=== PATIENT | female | born 1960 | race Caucasian/White ===

== ENCOUNTER → 2021-01-03 11:04 | Outpatient (CLI) | payer OTHER, SELFPAY ==
--- NOTE | 2021-01-03 | DI.CT.S_ITS ---
PROCEDURE: CT SINUS SCREEN WO CON INDICATIONS: Chronic pansinusitis TECHNIQUE: Noncontrast 3.0 mm axial images acquired from the frontal sinuses to the mid-sella, with coronal and sagittal reformats. For radiation dose reduction, the following was used: automated exposure control, adjustment of mA and/or kV according to patient size. COMPARISON: None. FINDINGS: Image quality: Excellent. Maxillary Sinuses: No bony remodeling or destruction. There is mild mucosal thickening seen involving the inferior right maxillary sinus. Ethmoid Air Cells: No bony remodeling or destruction. Sinuses are clear. Sphenoid Sinuses: No bony remodeling or destruction. Sinuses are clear. Frontal Sinuses: No bony remodeling or destruction. There is mild mucosal thickening seen involving the inferomedial left frontal sinus. Ostiomeatal Complexes: Ostiomeatal complexes are patent, yet there constitutionally narrowed, with right-sided Laith cells. Miscellaneous: Visualized intra-orbital contents are normal. No pee bullosa or paradoxical turbinate curvature. There is mild leftward nasal septal deviation. IMPRESSION: Mild scattered foci of paranasal sinus disease can be seen. Narrowed ostiomeatal complexes. Mild leftward nasal septal deviation. Dictated by: Sylvester Ontiveros M.D. on 01/03/2021 at 10:57 Approved by: Sylvester Ontiveros M.D. on 01/03/2021 at 10:59
== END ==
PROVIDERS: Family Provider Registered Nurse Women's Health Care, Ambulatory; PCP Naturopath; Referring Provider Otolaryngology; Visit Provider Otolaryngology
DX: J32.4 Chronic pansinusitis (principal); J34.2 Deviated nasal septum
CPT/HCPCS: 70486

== ENCOUNTER → 2021-04-28 08:30 | Outpatient (CLI) | payer OTHER, SELFPAY ==
--- NOTE | 2021-04-28 | DI.CT.S_ITS ---
PROCEDURE: CT LUMBAR SPINE WO CON INDICATIONS: Spinal stenosis, lumbar region with neurogenic claudication TECHNIQUE: Noncontrast 3 mm thick sections acquired from the T12 level to the sacrum. 0.8 mm axial images are reformatted. Sagittal and coronal reformats were constructed. For radiation dose reduction, the following was used: automated exposure control. COMPARISON: [facility] MR, MR LUMBAR SPINE WITHOUT CONTRAST, 03/25/2021, 14:48. [facility], [facility] WITHOUT CONTRAST, 11/19/2017, 15:36. FINDINGS: Image quality: Excellent. Bones: No acute vertebral body compression fractures. No suspicious lytic or blastic bony lesions. No pars defects. [id number] levoconvex lumbar scoliotic curvature is seen. There is minimal retrolisthesis at L1-L2. Mild retrolisthesis is seen at L2-L3. There is minimal retrolisthesis seen at the L5-S1 level. T12-L1: No significant abnormality is seen. L1-L2: At least moderate loss of disc height is seen. Vacuum disc phenomenon is seen at this level. Endplate irregularity and sclerosis can be seen. Posteriorly projected endplate osteophytes are seen. Moderate generalized disc bulge is seen. No significant neural foraminal narrowing is seen. Mild central canal narrowing is seen. L2-L3: At least moderate loss of disc height can be seen. Vacuum disc phenomenon is seen at this level. Endplate irregularity and sclerosis can be seen. Moderate generalized disc bulge is seen. There is at least moderate bilateral neural foraminal narrowing seen, right worse than left. Mild to moderate central canal narrowing is seen. L3-L4: The disc height is well preserved. Moderate generalized disc bulge is seen. There is a superimposed central disc protrusion. Mild facet joint hypertrophy is seen. There is mild right-sided and no left-sided neural foraminal narrowing seen. Moderate central canal narrowing is seen. L4-L5: At least moderate loss of height is seen. Endplate irregularity and sclerosis can be seen. Vacuum disc phenomenon is seen at this level. Moderate disc bulge is seen, which is eccentric to the right. Moderate facet joint hypertrophy is seen. There is moderate to severe right-sided neural foraminal narrowing seen, with associated compression upon the exiting right L4 nerve root. Mild to moderate left-sided neural foraminal narrowing is seen. At least moderate central canal narrowing can be seen. L5-S1: There is at least moderate loss of disc height seen. Vacuum disc phenomenon is seen at this level. Posteriorly projected endplate osteophytes are seen. Moderate facet joint hypertrophy is seen. There is moderate to severe left-sided neural foraminal narrowing seen, with associated compression upon the exiting left L4 nerve root. No significant right-sided neural foraminal narrowing is seen. Moderate central canal narrowing is seen. Soft tissues: No retroperitoneal masses or hematomas. Visualized aorta is normal in caliber. A normal appendix is incidentally noted. IMPRESSION: Multiple levels of lumbar spine degenerative change are seen, which are worst inferiorly. There is moderate to severe right-sided neural foraminal narrowing at L4-L5 and moderate to severe left-sided neural foraminal at L5-S1. Associated exiting nerve root compression can be seen. The degenerative changes are better seen on the recent prior MRI examination. [id number] levoconvex lumbar scoliosis is seen. Dictated by: Sylvester Ontiveros M.D. on 04/28/2021 at 11:05 Approved by: Sylvester Ontiveros M.D. on 04/28/2021 at 11:11
== END ==
PROVIDERS: Family Provider Registered Nurse Women's Health Care, Ambulatory; PCP Naturopath; Referring Provider Physical Medicine & Rehabilitation; Visit Provider Orthopaedic Surgery Orthopaedic Surgery of the Spine
DX: Z01.818 Encounter for other preprocedural examination (principal); M48.062 Spinal stenosis, lumbar region with neurogenic claudication; M48.07 Spinal stenosis, lumbosacral region; M41.86 Other forms of scoliosis, lumbar region; M47.816 Spondylosis without myelopathy or radiculopathy, lumbar region; M47.817 Spondylosis without myelopathy or radiculopathy, lumbosacral region
CPT/HCPCS: 72131; 93005; 93010

== ENCOUNTER → 2021-07-10 12:09 | Outpatient (CLI) | payer OTHER, SELFPAY ==
--- NOTE | 2021-07-10 | DI.RAD.S_ITS ---
PROCEDURE: XR CHEST 2V INDICATIONS: COUGH TECHNIQUE: 2 views of the chest were acquired. COMPARISON: None. FINDINGS: Surgical changes and devices: None. Lungs and pleura: Lungs are clear. No pleural effusions or pneumothorax. Mediastinum: Mediastinal contours are normal. Heart size is normal. Bones and chest wall: No suspicious bony abnormalities. Soft tissues appear unremarkable. IMPRESSION: No acute cardiopulmonary disease. Dictated by: Letitia Rodriguez M.D. on 07/10/2021 at 17:06 Approved by: Letitia Rodriguez M.D. on 07/10/2021 at 17:06
[2021-07-10 14:31] LABS: Add Manual Diff / Slide Review NO; Basophils Absolute Auto 0 /uL (0-100); Basophils Percent Auto 0.7 % (0-2); Eosinophils Absolute Auto 100 /uL (0-450); Eosinophils Percent Auto 2.3 % (2-4); Hematocrit 36.8 % (36-46); Hemoglobin 12.6 g/dL (12.0-16.0); Lymphocytes Absolute Auto 1900 /uL (1100-4500); Lymphocytes Percent Auto 32.8 % (25-40); Mean Corpuscular HGB Conc 34.3 % (30-36); Mean Corpuscular Hemoglobin 32.4 PG (26-34); Mean Corpuscular Volume 94.3 fL (80-100); Monocytes Absolute Auto 500 /uL (0-900); Monocytes Percent Auto 8.4 % (3-14); Neutrophils Absolute Auto 3200 /uL (1500-7000); Neutrophils Percent Auto 55.8 % (50-75); Platelet Count 205 X10^3/uL (150-400); Red Blood Cell Count 3.91 X10^6/uL (4.0-5.2); Red Cell Distribution Width 12.9 % (11.6-14.8); White Blood Cell Count 5.6 X10^3/uL (4.5-11.0)
[2021-07-10 14:46] LABS: Hemoglobin A1C% w Est Avg Glu 5.1 % (4.0-6.0)
[2021-07-10 15:05] LABS: BUN Creatinine Ratio 15.2 (6-22); Blood Urea Nitrogen 10 mg/dL (7-17); Calcium 9.4 mg/dL (8.4-10.2); Carbon Dioxide 27 mmol/L (22-32); Chloride 106 mmol/L (98-107); Estimated Glomerular Filt Rate > 60.0 mL/min (>60); Glucose 94 mg/dL (80-110); HEMOLYSIS < 15 (0-50); Potassium 4.2 mmol/L (3.4-5.1); Sodium 140 mmol/L (137-145)
[2021-07-10 15:10] LABS: Free T3, Triiodothyronine Free 2.47 pg/mL (2.77-5.27)
[2021-07-10 15:24] LABS: Thyroid Stimulating Hormone 0.992 uIU/mL (0.47-4.68)
[2021-07-11 10:17] LABS: Ferritin 100 ng/mL (11-264)
== END ==
PROVIDERS: Family Provider Registered Nurse Women's Health Care, Ambulatory; PCP Naturopath; Referring Provider Orthopaedic Surgery Orthopaedic Surgery of the Spine; Visit Provider Orthopaedic Surgery Orthopaedic Surgery of the Spine
DX: E03.9 Hypothyroidism, unspecified (principal); R04.2 Hemoptysis; R05.9 Cough, unspecified; Z01.812 Encounter for preprocedural laboratory examination; R73.9 Hyperglycemia, unspecified
CPT/HCPCS: 36415; 71046; 80048; 82728; 83036; 84443; 84481; 85025

== ENCOUNTER → 2021-08-18 09:34 | Outpatient (CLI) | payer OTHER, SELFPAY ==
[2021-08-18 11:37] LABS: COVID19 -Nasal RAPID Negative (Negative)
== END ==
PROVIDERS: Family Provider Registered Nurse Women's Health Care, Ambulatory; PCP Naturopath; Visit Provider Family Medicine Sleep Medicine
DX: Z20.822 Contact with and (suspected) exposure to COVID-19 (principal)
CPT/HCPCS: 87635; C9803

== ENCOUNTER 2021-08-20 13:55 | Observation (INO) | payer OTHER, SELFPAY ==
[2021-08-18 12:50] VITALS: BMI 25.7
[2021-08-20] VITALS (15 sets, daily range): BP systolic 97–125; BP diastolic 46–71; PULSE 71–89; RESP 9–18; TEMP 35.9–36.7; O2SAT 92–100; BMI 25.7
--- NOTE | 2021-08-20 | DI.RAD.S_ITS ---
PROCEDURE: XR LUMBAR SPINE 2-3V INDICATIONS: L4-5 L5-S1 TLIF TECHNIQUE: 2 views of the lumbar spine were acquired. COMPARISON: Merged With [facility], CT, CT LUMBAR SPINE WO CON, 04/28/2021, 8:41. FINDINGS: 2 intraoperative fluoroscopy images demonstrate discectomy, laminectomy and posterior fusion at L4-L5 and L5-S1. Surgical hardware appear in expected position. Multiple artifacts are seen on images. IMPRESSION: Expected postsurgical change. Dictated by: Royal Davalos M.D. on 08/20/2021 at 15:41 Approved by: Royal Davalos M.D. on 08/20/2021 at 15:45
[2021-08-20] MEDS: LACTATED RINGERS 1,000 ML 42 ML IV ×2 (07:35→09:00)
--- NOTE | 2021-08-20 07:48 | PM.PREOP ---
Pre-operative Note COVID-19 COVID-19 status: Negative Result date/Date tested (Pos, Neg/Pending): 08/19/21 Criteria for continued procedure: Expected advancement of disease process, Possibility delay results in more complex future surgery or treatment, Increased loss of function, Continuing or worsening of significant or severe pain, Deterioration of the patient's condition or overall health and Delay expected to result in less-positive ultimate med/surg outcome Interval Note History & Physical reviewed/Exam performed by Physician: Yes Changes to H&P: No
[2021-08-20] MEDS: CEFAZOLIN 2 GM/20 ML SYRINGE IV ×2 (08:22→16:17)
--- NOTE | 2021-08-20 08:51 | SUR.OPER ---
Prone on spine table, head in foam head support, padded chest and pelvic supports, gel pad at knees, lower legs supported by pillows; nipples, genitalia and toes free of pressure, arms secured on foam padded arm boards at <90 degrees abduction. Tape over blanket at thigh secured to table.
[2021-08-20] MEDS: BUPIVACAINE 0.25% (PF) 60 ML, EPINEPHrine 0.3 MG INJ (08:56)
[2021-08-20] MEDS: BUPIVACAINE LIPOSOME 266 MG/20 ML VIAL INJ (08:58)
--- NOTE | 2021-08-20 12:03 | PM.OP.1 ---
Operative Date/Time/Diagnoses Date of procedure: 08/20/21 Time of procedure: 07:45 Pre-op diagnosis: 1. L4-5, L5-S1 spinal stenosis with radiculopathy 2. Lumbar scoliosis Post-op diagnosis: same Procedure & Clinicians Procedure: 1. L4-5, L5-S1 Postero-lateral and posterior interbody fusion 2. L4-5, L5-S1 interbody cage placement. 3. L4-5, L5-S1 decompressive laminectomy with bilateral facetecomies 4. L4-5, L5-S1 Posterior segmental instrumentation 5. [place] of bone marrow from iliac crest 6. Utilization of microsurgical technique and operating microscope 7. Utilization of robotic assisted surgery Same procedure as scheduled: Yes Indications: Patient has been having chronic back pain and worsening lumbar radiculopathy. Patient failed multiple conservative management with worsening pain weakness and numbness in her lower extremity. Patient has been having difficulty performing activity of daily living. After discussing risks benefits of treatment options, patient elected proceed with surgery. Surgeon: Prem Hernandez Package Crimper: Idalia Lomas Click Yes if Unassisted: No Anesthesia Type: General Operative Notes Closure Type: primary Specimen(s): none sent Prosthetic devices, grafts, tissues, transplants, or devices: Globus CREO MIS screws, Rise cages Applied: catheter Estimated Blood Loss (mL): 100 Blood products transfused: none Procedure in detail: Patient was seen in the preoperative area. Risks and benefits of the surgery was discussed with the patient. Informed consent was obtained from the patient and placed in the chart. Surgical site was marked. Patient was taken to the operative room. General anesthesia was administered. Prophylactic antibiotic was given to the patient less than 30 min before the incision was made. Patient was placed into a prone position on the Dar table. Patient's back was then prepped and draped in the sterile fashion. Time-out was performed at this time. After patient was prepped and draped, patient's PSIS was palpated and marked bilaterally. Small 1 cm incision was made over the PSIS for placement of the reference probes. Two trocar was placed into the PSIS 1 on each side. The reference probe was attached to the trocar of the reference apparatus. At this time the C-arm imaging was used to confirm AP and lateral of L4-L5, L5-S1 vertebrae and merged the C-arm imaging using the Triplify robotic navigation system with the CT of the lumbar spine. After successful merging was completed and confirmed, skin marker was used to gal out the skin incision using the Triplify robotic arm. Bilateral incision was made at this time. Pre templated trajectory was used and guided using the Triplify robotic navigation system for bilateral L4, L5, S1 pedicle screw placement. This was done by using the robotic arm to guide the high-speed bur to make a cortical entry point. Next a drill was placed also using the robotic arm and guided using the navigation system drilling partially through bilateral L4, L5 and S1 pedicles. Next L4, L5, S1 pedicle screws it was pre templated and measured was placed onto the power spotter driver and inserted into the pedicles bilaterally. After all 6 screws were placed C-arm imaging was taken of both AP and lateral to confirm the placement. Excellent placement of the screws were confirmed and a matched precisely with the pre planned screw placement using the navigation system. MARs retractor was inserted using [employer] Smart[employer]Buildingivation guidence. Globus MARS retractors was placed inside the incision and docked onto the L4 and L5 lamina. Using microsurgical technique and operating microscope, a L4, L5 laminectomy and L4-5, L5-S1 facetectomy was performed using a Kerrison rongeur. Patient was found have severe lateral recess and neural foramen stenosis which was fully decompressed after the laminectomy facetectomy. More than 75% of the facets were removed during the process of decompression rendering L4-5, L5-S1 level grossly unstable and required a fusion procedure at the same time. The disc space at L4-5, L5-S1 was identified, and a total diskectomy was performed at L4-5, L5-S1 level. The endplates were decorticated using a rasp and shaver. The total diskectomy and decortication was performed at L4-5, L5-S1 level in order to to accomplish a L4-5, L5-S1 fusion. The local bone from the laminectomy and facetectomy was saved for local bone grafting. After the total diskectomy and decortication was completed, Trifecta bone graft material was combined with local bone that was harvested earlier. At this time, a separate skin is incision was made over the iliac crest. A Jamshidi needle was inserted into the iliac crest through a separate skin incision. 5 cc of bone marrow aspiration was obtained through the separate skin incision using a Jamshidi needle from the iliac crest. The bone marrow aspiration was combined with local bone and the Trifecta bone grafting material. The bone grafting material was placed into the L4-5, L5-S1 interbody space along with a expandable cage. The cage was expanded to its maximum height using the torque limiting screwdriver. The disc preparation as well as the cage insertion were also performed under navigation guidance. After the cage was placed, AP and lateral C-arm imaging was taken to confirm placement of the cage and excellent position was confirmed. Globus MARS retractor was inserted and docked onto the L4-5, L5-S1 posterolateral gutter on the right side. Using the power drill, posterior-lateral decortication was performed at L4-5, L5-S1 level until bleeding cortical bone was identified. The remaining bone grafting material was placed into the L4-5, L5-S1 posterior lateral gutter he order to accomplish posterolateral fusion at the L4-5, L5-S1 level. At this time the tulips were attached to the L4, L5, S1 pedicle screw shanks. After measuring the length of the rods, they were inserted into the tulips of the pedicle screws and locked in place using locking caps and torque limiting screwdriver bilaterally. Total 6 caps and 2 titanium rods was used in order to complete the posterior instrumentation construct. After all the hardware was placed, and confirmed with AP and lateral C-arm imaging, the wound was then irrigated with sterile normal saline and packed with Ray-Miya gauze for 3 min to accomplish hemostasis. After the gauze was removed the deep fascia was closed with #1 Vicryl suture. The subcutaneous layer was closed with 2-0 Vicryl. The skin was closed with skin johnny. Patient tolerated the procedure well. There were no complications. Neuro monitoring system was used to monitor patient's neurologic status throughout entire procedure. There was no disturbance of the neural monitoring signals throughout the case. Complications: none Post-operative Condition: stable Disposition: PACU Plan for aftercare: Admit to inpatient hospital
[2021-08-20] MEDS: HYDROMORPHONE 2 MG INJ IV ×4 (12:23→13:13)
[2021-08-20] MEDS: LORazepam 2 MG/ML INJ 0.5 MG IV (12:43)
[2021-08-20] MEDS: OXYCODONE/ACETAMINOPHEN 5/325 TABLET 1 TAB PO ×2 (12:56→13:27)
--- NOTE | 2021-08-20 13:10 | SUR.PHASEI ---
Report to Eddie
--- NOTE | 2021-08-20 14:10 | CM.DANOTE ---
DCP: Case received, EMR reviewed and met with patient. Son, Jl, was at bedside. Introduced self and role. Was able to obtain information regarding patient's baseline activity status prior to hospitalization. DCP assessment completed with information currently available. Patient is a 61 year old female who admitted early this morning to the care of the orthopedic team. PCP: Dr. London. Payer: confirmed: [facility]. Patient came to the hospital via private vehicle for a surgical procedure. Patient had L4-5, L5-S1 postero-lateral and posterior interbody fusion. Patient has history of chronic back pain, and spinal stenosis. Met with patient in her room. She was sleepy, she had surgery this morning. Her son, Jl, was at her bedside. Patient does live alone in [place], but son plans to assist patient when she goes home. Patient is independent at her baseline, and she does have a FWW for home use. P: DCP to continue to follow for any needs. She will be working with P.T. when she is medically stable. Maty Camarillo RN/Checker Product Design Discharge Planning/Care Management CM Discharge Assessment Start: 08/20/21 14:09 Freq: Status: Active Protocol: Document 08/20/21 14:09 (Rec: 08/20/21 14:10 [id number]) Discharge Planning Assessment Assigned Rn Social Work Maty Camarillo RN/Checker Product Design Advance Directives? No History Provided By Patient,Medical Record Prior Living Arrangements House Household Members none Type of transporation used prior to Drives own vehicle admit Independent with ADL's Yes Is patient alert and oriented? Yes DME Already Rented / Owned FWW / Walker Barriers to Discharge No Discharge Plan Home Transportation Arrangement Son Whiteboard Updated in Patient Room with Yes name and ext. # of Rn Social Work Review Status In Process Next Review Type Continued Stay Review Pre-Anesthesia Assessment Start: 08/18/21 12:50 Freq: Status: Complete Protocol: Document 08/18/21 12:50 CAB (Rec: 08/18/21 13:41 CAB [id number]) Pre-Anesthesia Assessment Patient Information Reviewed Via Phone Assessment Assessment Completed With Patient H&P Completed Within 30 Days Yes Diagnostic Results BMP/CMP,CBC Comment Labs @ [facility] 07/10, COVID screen @ [facility] 08/18/21 Negative Primary Care Provider Mini London Seen Specialist in Last 12 Months Yes Specialist Seen ENT,Orthopedist,Cold Type Artist, Other Comment Neuro r/t migraines. Primary Language Arabic Senior Policy Advisor Required No Height 5 ft 3 in Weight 145 lb Body Mass Index (BMI) 25.7 Hearing Ability Normal Visual Assist Glasses Dentition Type Teeth, Natural Present Barriers to Learning None Hx Anesthesia Reactions Yes: Occasional PONV Hx Family Anesthesia Reaction No Hx Malignant Hyperthermia No Hx Blood Transfusions No Anesthesia Review Requested No alcohol intake former Smoking Status Former smoker how long ago did patient quit smoking Quit 1985 Substance Use Type does not use Pain Present Pain Reported Musculoskeletal Symptoms Abnormal Gait,Back Pain, Difficulty Walking,Radiating Pain into Limb History of Falling (Recent or History of No ) Patient is completely paralyzed or No completely immobile Mental Status Oriented to own ability Comment Pt reports she is very active Is patient on oxygen? No Does patient have NEVAREZ/SOB Yes: r/t Asthma, pt states controlled Hx Sleep Apnea No Currently Taking a Beta Naty No Can You Climb a Flight of Stairs Without Yes SOB Hx Chest Pain No Hx SOB Yes: r/t Asthma, pt states controlled Hx Syncope or Dizziness No Anti-Coagulant Therapy No Has a Filler Room Attendant No Cardiac Testing No Hx Pacemaker/ICD No Pacemaker Rep Required? No Cardiac Clearance Received Not Applicable Diet Type At Home Gluten Free dysphagia No: No fish, pork, shellfish Gastrointestinal Symptoms Constipation Urinary Catheter Present No Hx Urinary Self Catheterization No Diabetes No Patient No Lactating No Hx Drug Resistant Organism No Presence of External or Internal Medical Yes: Bilat toe pins Devices Have you had any close contact with No someone diagnosed with COVID-19? Received a COVID vaccine? Yes Received all doses? Yes Marital Status in April 2021 Lives With none Prior Living Arrangements House Number of Floors (Floors) One Floor Support System Child/Children Does the Patient Have Assistance After Yes: Daughter will stay w/pt Surgery to assist with care in the home Patient Discharge Plan Description Return Home Comment Pt advised 1-2 night length of stay per surgeon Feels Safe in Current Environment Yes Been Physically Hurt or Threatened By a No Person in Current Environment Do you have thoughts of harming yourself None or others? Are you currently considering suicide? No Do you have a plan to hurt yourself or No Plan others? Do You Have Any Spiritual Beliefs That No May Affect Your HC Choices? Do You Have Any Cultural Practices That No May Affect Your HC Choices? Comment Gnosticist Who Can We Speak to About Patient's Care Family, friends Identifying Code for Release of Patient Declines to issue Information Health Care Proxy/Next of Kin Jana (daughter) Health Care Proxy Emergency Contact Name Jl (son) Emergency Contact Advance Directives? No Power of Signal Intelligence/Electronic Warfare No PAC Instructions Durable medical equipment, Medications to take/avoid, Nasal antibiotic,No ETOH/ petroleum product on skin DOS, NPO,Post-op transportation, Sensory aids,Sturdy shoes/ comfortable clothes,Do not bring valuables and remove jewelry
[2021-08-20] MEDS: SODIUM CHLORIDE 0.9% 1,000 ML 100 ML IV (16:16)
[2021-08-20] MEDS: GABAPENTIN 300 MG CAPSULE PO ×2 (16:17→21:58)
--- NOTE | 2021-08-20 18:57 | PC.NURSE ---
Assess- Patient is alert and oriented x3, she is groggy but awakens easily. Her dressing to lower back is cdi without mir drainage noted. Patient is not nausea at this time. She was given gabapentin by evy Rn and this has made her groggy. She denies any numbness or tingling in her lower extremities. CMS wnl and ppx2. She is on NS at 100cc/hr and tolerating well. Patients son is in room.
[2021-08-20] MEDS: ACETAMINOPHEN 325 MG TABLET 650 MG PO (19:58)
[2021-08-20] MEDS: OXYCODONE IR 5 MG TABLET 10 MG PO (20:01)
[2021-08-20] MEDS: DOCUSATE 100 MG CAPSULE PO (21:58)
[2021-08-20] MEDS: SENNOSIDES 8.6 MG TABLET 17.2 MG PO (22:01)
[2021-08-21] VITALS: BP 101/49; PULSE 74; RESP 16; TEMP 36.7; O2SAT 98
[2021-08-21] MEDS: CEFAZOLIN 2 GM/20 ML SYRINGE IV (00:05)
[2021-08-21] MEDS: ACETAMINOPHEN 325 MG TABLET 650 MG PO (01:55)
[2021-08-21] MEDS: SODIUM CHLORIDE 0.9% 1,000 ML 100 ML IV (01:58)
[2021-08-21] MEDS: LEVOTHYROXINE 75 MCG TABLET PO (05:37)
[2021-08-21] MEDS: OXYCODONE IR 5 MG TABLET 10 MG PO (05:41)
[2021-08-21 05:42] VITALS: BP 99/46; PULSE 79; RESP 16; TEMP 36.7; O2SAT 98
[2021-08-21 06:04] LABS: Hemoglobin 11.3 g/dL (12.0-16.0)
--- NOTE | 2021-08-21 07:30 | PM.DS.1 ---
History of Present Illness History of Present Illness Date Patient Seen: 08/21/21 Time Patient Seen: 07:30 Chief complaint: TLIF *OPB* Narrative: Patient states her pain is mild. Denies fever chills. No nausea vomiting. Otherwise without complaints. Discharge Providers Provider Date of admission: 08/20/21 13:55 Discharge Date: 08/21/21 Primary care physician: Mini London ND Consults: 08/20/21 13:55 Consult to Occupational Therapy Evaluate & Treat Comment: Physician Instructions: Evaluate and treat Consult to Physical Therapy Evaluate & Treat Comment: Physician Instructions: Evaluate and Treat Discharge provider: Gautam Glynn PA-C Summary Hospital Course Discharge Diagnosis: 1. L4-5, L5-S1 spinal stenosis with radiculopathy 2. Lumbar scoliosis Hospital Course: 1. L4-5, L5-S1 Postero-lateral and posterior interbody fusion 2. L4-5, L5-S1 interbody cage placement. 3. L4-5, L5-S1 decompressive laminectomy with bilateral facetecomies 4. L4-5, L5-S1 Posterior segmental instrumentation 5. [place] of bone marrow from iliac crest 6. Utilization of microsurgical technique and operating microscope 7. Utilization of robotic assisted surgery Same procedure as scheduled: Yes Indications: Patient has been having chronic back pain and worsening lumbar radiculopathy. Patient failed multiple conservative management with worsening pain weakness and numbness in her lower extremity.? Patient has been having difficulty performing activity of daily living.? After discussing risks benefits of treatment options, patient elected proceed with surgery. Surgeon: Prem Hernandez [employer] Manager: Idalia Lomas Click Yes if Unassisted: No Anesthesia Type: General Operative Notes Closure Type: primary Specimen(s): none sent Patient admitted to the hospital for the above-mentioned procedure. Patient consented to the same. Patient underwent lumbar fusion on August 20 1021. Patient back in her room recovering well as in stable condition. Will discharge home today after physical therapy if safe for home environment. Status at Discharge Cognitive/behavioral status at discharge: at baseline, oriented Functional status at discharge: uses cane/walker Overall status at discharge: patient is progressing back to baseline Exam Vital Signs (past 8 hours): - 08/21/21 00:00 08/21/21 05:42 Temperature 98.0 F 98.1 F Pulse Rate 74 79 Respiratory Rate 16 16 Blood Pressure 101/49 L 99/46 L Pulse Oximetry 98 98 Oxygen Delivery Method Room Air Oxygen Flow Rate 0 Narrative Exam Narrative: Pleasant 61-year-old female resting comfortably in bed in no apparent distress. Dressing Clean, dry, intact.. Motor functions intact bilateral lower extremities. Sensation grossly intact to light touch bilateral lower extremities. Objective Labs Result Diagrams: 08/21/21 04:40 Labs: Laboratory Results - last 24 hr 08/21/21 04:40 Hgb 11.3 L Hct 33.0 L PFSH Medical History Anxiety Asthma Chronic fatigue syndrome Constipation History of migraine History of pneumonia Hypothyroidism Kidney stone PTSD (post-traumatic stress disorder) (~04/2021) Sciatica Sinus drainage Surgical History History of bilateral tubal ligation History of bunionectomy of both great toes History of carpal tunnel release of both wrists History of dilatation and curettage Hx of tonsillectomy S/P epidural steroid injection Social History household members: none Smoking Status: Former smoker alcohol intake: former Discharge Assessment & Plan Assessment and Plan Assessment: Patient progressing as expected status post lumbar fusion Plan of Treatment: Multimodal pain management Mobilize with physical therapy Limit bending, twisting, lifting Discharge home today after physical therapy if safe for home environment. Discharge Plan Discharge Plan Patient Disposition: Home Discharge orders & Medications Prescriptions: New acetaminophen 325 mg Tablet 650 mg PO Q6HR PRN (Reason: Pain, Mild (1-3)) Qty: 60 0RF docusate sodium 100 mg Capsule 100 mg PO BID Qty: 20 0RF oxycodone 5 mg Tablet 10 mg PO Q3HR PRN (Reason: Pain, Severe (7-10)) Qty: 60 0RF hydroxyzine pamoate 25 mg Capsule 25 mg PO Q4HR PRN (Reason: Nausea And Vomiting) Qty: 30 0RF Continued fluticasone propion-salmeterol [Advair Diskus] 250-50 mcg/dose Blister With Device 1 inh INHALATION BID 0RF naltrexone 50 mg Tablet 4.5 mg PO BEDTIME 0RF Label Comments: Compounded by [facility] levothyroxine 75 mcg Tablet 75 mcg PO DAILY 0RF Flovent HFA 44 mcg/actuation Hfa Aerosol Inhaler 1 puff INHALATION BID PRN (Reason: Shortness Of Breath) 0RF Rx Instructions: administer with spacer gabapentin 300 mg Capsule 300 mg PO TID 0RF montelukast [Singulair] 10 mg Tablet 10 mg PO QAM 0RF albuterol sulfate 90 mcg/actuation Hfa Aerosol Inhaler 2 puff INHALATION Q4-6H PRN (Reason: Shortness Of Breath) 0RF rizatriptan 10 mg Tablet 10 mg PO DAILY PRN (Reason: Migraine Headache) 0RF Rx Instructions: take 1 tab at onset of headache; if no relief may repeat 1 tab after at least 2 hrs; max = 3 tabs/24 hr verapamil 120 mg Tablet 120 mg PO DAILY PRN (Reason: Migraines) 0RF fluticasone propionate 50 mcg/actuation [place],Suspension 1 spray INTRANASAL DAILY 0RF Rx Instructions: administer into each nostril loratadine [Claritin] 10 mg Tablet 10 mg PO DAILY 0RF magnesium 200 mg Tablet 400 mg PO DAILY 0RF turmeric 400 mg Capsule 1,000 mg PO BID 0RF Follow up/Referrals: Prem Hernandez MD [Physician] - (2 weeks ) Mini London ND [Primary Care Provider] - Diet/Activity/Treatments Diet: Diet as Tolerated Activity: Limit bending, twisting, lifting Skin/Wound/Dressing Care Report to your healthcare provider any signs of infection, such as:: chills, fever, increased pain, unusual drainage and unusual redness Dressing: Keep dressing clean and dry Visit Report/Discharge Packet Instructions: DI for Prescription Opioid Use, DI for Transforaminal Lumbar Interbody Fusion Stand Alone Forms: Surgery Discharge Discharge Data Primary Care Provider: Mini London Attending Provider: Prem Hernandez VTE Deep Vein Thrombosis/Pulmonary Embolism Present on Admission: No
[2021-08-21 07:51] VITALS: BP 106/48; PULSE 72; RESP 18; TEMP 36.3; O2SAT 98
[2021-08-21] MEDS: DOCUSATE 100 MG CAPSULE PO (08:56)
[2021-08-21] MEDS: GABAPENTIN 300 MG CAPSULE PO (08:56)
[2021-08-21] MEDS: LORATADINE 10 MG TABLET PO (08:56)
[2021-08-21] MEDS: OXYCODONE IR 5 MG TABLET PO ×2 (09:01→11:30)
[2021-08-21] MEDS: MONTELUKAST 10 MG TABLET PO (09:01)
--- NOTE | 2021-08-21 09:50 | OT.IP.EVAL ---
Current Diagnoses Other secondary scoliosis, lumbar region (08/20/21) Spinal stenosis, lumbar region without neurogenic claudication (08/20/21) Surgery Performed Operation Date: 08/20/21 07:45 Actual Procedures p L4-5, L5-S1 TLIF w. posterior inst. - Luis Carlos Hernandez MD Past Medical History (Last Reviewed 08/21/21 @ 07:32 by Gautam Glynn PA-C) Anxiety Asthma Chronic fatigue syndrome Constipation History of bilateral tubal ligation History of bunionectomy of both great toes History of carpal tunnel release of both wrists History of dilatation and curettage History of migraine History of pneumonia Hx of tonsillectomy Hypothyroidism Kidney stone PTSD (post-traumatic stress disorder) (~04/2021) S/P epidural steroid injection Sciatica Sinus drainage Surgical History (Last Reviewed 08/21/21 @ 07:32 by Gautam Glynn PA-C) History of bilateral tubal ligation History of bunionectomy of both great toes History of carpal tunnel release of both wrists History of dilatation and curettage Hx of tonsillectomy S/P epidural steroid injection Occupational Therapy Inpatient Evaluation/Re-Eval M1 PT/OT-IP Prior Functional Status Start: 08/21/21 10:17 Freq: NEEDED Status: Active Protocol: Document 08/21/21 09:00 [facility] (Rec: 08/21/21 10:30 [facility] [id number]) Medical Review Prior Functional Status Communication Independent Mobility and Gait Independent and able to walk a mile, however prior able to walk 3-5 miles daily. Pt does not use a device to walk with . Activities of Daily Living and IADL's Completely independent with all Adl and IADl needs. Pt states can only do light Yoga now and unable to do any bouncy movements due to her back pain. Social History Household Members none Living Arrangements House Number of Floors (Floors) One Floor Number of Stairs To Enter/Railing? 4 steps with narrow bilateral rails to enter. Home Environment Standard Height Toilet,Tub/ Shower Home Equipment Front Wheel Walker,Straight Cane,Hand Held Shower Additional Social History Comment Pt's daughter to stay with her until next Wednesday. Pt's son present for part of OT eval. M2 OT-IP Current Condition Start: 08/21/21 10:17 Freq: Status: Active Protocol: Document 08/21/21 09:00 [facility] (Rec: 08/21/21 10:30 [facility] [id number]) Occupational Therapy Current Condition Current Condition Evaluation Date 08/21/21 Treatment Diagnosis S/p L4-5, L5-S1 TLIF Diagnosis Onset Date 08/20/21 Post Operative Precautions Lumbar Precautions Log Roll,No Twisting,Limit Bending,Lifting Restriction of 10 lbs,Gait Belt above Incisional Area M3 OT- IP Subjective and Pain Start: 08/21/21 10:17 Freq: Status: Active Protocol: Document 08/21/21 09:00 [facility] (Rec: 08/21/21 10:30 [facility] [id number]) OT- Subjective Occupational Therapy Visit Type Type Initial Evaluation Visit Start Time 09:00 Visit Stop Time 09:50 Total Visit Minutes 50 Occupational Therapy Visit Comments Patient Comments Pt agreed to get up for OT eval. Patient/Caregiver Goals To go home. M4 OT- IP ADL's Start: 08/21/21 10:17 Freq: Status: Active Protocol: Document 08/21/21 09:00 [facility] (Rec: 08/21/21 10:30 [facility] [id number]) OT [id number] General Evaluation Self-Feeding Ability Independent OT ADL-Grooming General Evaluation Grooming Ability Standby Assistance OT ADL-Oral Care General Eval Oral Care Ability Independent Comments Oral Care Comments vc to best hinge at her hips to spit to best follow her back precautions. OT ADL-Dressing General Eval Lower Body Dressing Ability Minimal Assistance,Maximum Assistance Areas Needing Assistance Pull-Over Shirt,Underpants/ Brief,Pants/Shorts,Socks,Shoes Comments OT Dressing Comments Able to issue and practice use of dressing equipment for pt to best follow her back precautions. OT ADL-Toileting General Evaluation Toileting Ability Standby Assistance Comments OT Toileting Comments It was best for pt to stand to wipe to best follow her back precautions. OT ADL-Bathing Comments OT Bathing Comments It was recommended to get a shower chair and have her daughter assist her. Educated to cover her dressing with plastic prior to showering and have her daughter assist to wash her back. M5 OT- IP IADL's Start: 08/21/21 10:17 Freq: Status: Active Protocol: Document 08/21/21 09:00 [facility] (Rec: 08/21/21 10:30 [facility] [id number]) OT-Instrumental Activities of Daily Living Home Safety Awareness Awareness of Need for Assistance at Home Good Awareness Home Safety Comments Pt a bit groggy from pain medications and aware to be sure to have her family provide supervision and assist as needed. M6 OT- IP Functional Cognition Start: 08/21/21 10:17 Freq: Status: Active Protocol: Document 08/21/21 09:00 [facility] (Rec: 08/21/21 10:30 [facility] [id number]) Cognitive Factors Limiting Selfcare Function Cognitive Ability Level of Alertness Alert,Drowsy Patient Orientation Name,Age,Birthday,Month,Date, Year,Day of Week,Place, Situation Attention Span Ability Capable of Focused Attention, Capable of Sustained Attention Ability to Follow Commands Able to Follow One Step Commands Memory Description No Deficits Noted Safety Awareness Decreased Recall of Precautions,Decreased Ability to Apply Precautions Cognitive Comments Cognitive Assessment Comments Pt a bit groggy and needing reminders for her back precautions and to follow them for mobility and ADL needs. OT- Vision and Hearing OT- Vision Assessment Visual Acuity Glasses All The Time M7 OT- IP Mobility and Balance Start: 08/21/21 10:17 Freq: Status: Active Protocol: Document 08/21/21 09:00 [facility] (Rec: 08/21/21 10:30 [facility] [id number]) OT- Bed Mobility Assessment Rolling Type of Rolling Roll to Left Level of Assistance Standby Assistance Supine to Sit Supine to Sit Assist Standby Assistance OT-Transfer Assessment Sit to and From Stand Sit to and from Stand Contact Guard Assistance Transfers Transfer Ability Standby Assistance,Contact Guard Assistance Technique Transfer Destination Bed,Chair,Toilet Transfer Technique Stand Step Pivot Devices Transfer Assistive Devices Gait Belt,Front Wheeled Walker Comments Mobility Comments Pt initially needing cues to hinge at her hips when coming to stand and to push from surface standing from. CGA to close SBA with FWW while walking in the room. OT- Balance Assessment Sitting Balance and Reactions Static Sitting Balance Ability Good Dynamic Sitting Balance Ability Good Standing Balance and Reactions Static Standing Balance Ability Fair Dynamic Standing Balance Ability Fair M9 OT- IP Assessment and Plan Start: 08/21/21 10:17 Freq: Status: Active Protocol: Document 08/21/21 09:00 [facility] (Rec: 08/21/21 10:30 [facility] [id number]) OT Summary Assessment and Plan Potential Rehabilitation Potential Excellent Analytic Complexity at Evaluation Low Summary OT Impairments Pain,Balance,Functional Mobility,Dressing,Toileting, Bathing,Toilet Transfers, Shower Transfers Progress Towards Goals Progressing Toward Goals Assessment Summary Pt low complexity and main barriers are steps and a bit groggy from pain medications and forgetting her back precautions. Pt to her daughter stay with her for over a week to assist with her needs. Pt was issued LB dressing equipment to assist with her needs and suggested to get a shower chair. Pt to go home with supportive family . Goals Grooming Goal Independent Dressing Goal Independent Toileting Goal Independent Bathing Goal Independent Toilet Transfer Goal Independent Shower Transfer Goal Independent Patient/Caregiver Education Goal Demonstrate Post-Op Precautions Days to Meet Goals 5 Frequency of Treatment Frequency Of Treatment Once a Day Treatment Plan OT Treatment Plan ADL Training,Functional Cognition Training,Functional Mobility,Patient/Family Education,Discharge Planning Discharge Recommendations OT Discharge Recommendations Home with 14/12 Assist Available Home Equipment Needs showr chair Transportation Needs at Discharge Private Vehicle
--- NOTE | 2021-08-21 10:25 | PT.IIE ---
Current Diagnoses Other secondary scoliosis, lumbar region (08/20/21) Spinal stenosis, lumbar region without neurogenic claudication (08/20/21) Surgery Performed Operation Date: 08/20/21 07:45 Actual Procedures p L4-5, L5-S1 TLIF w. posterior inst. - Luis Carlos - Prem Hernandez MD Medical History (Last Reviewed 08/21/21 @ 07:32 by Gautam Glynn PA-C) Anxiety Asthma Chronic fatigue syndrome Constipation History of migraine History of pneumonia Hypothyroidism Kidney stone PTSD (post-traumatic stress disorder) (~04/2021) Sciatica Sinus drainage Physical Therapy Inpatient Evaluation/Re-Eval M1 PT/OT-IP Prior Functional Status Start: 08/21/21 10:17 Freq: NEEDED Status: Discharge Protocol: Document 08/21/21 09:00 [facility] (Rec: 08/21/21 10:30 [facility] [id number]) Medical Review Prior Functional Status Communication Independent Mobility and Gait Independent and able to walk a mile, however prior able to walk 3-5 miles daily. Pt does not use a device to walk with . Activities of Daily Living and IADL's Completely independent with all Adl and IADl needs. Pt states can only do light Yoga now and unable to do any bouncy movements due to her back pain. Social History Household Members none Living Arrangements House Number of Floors (Floors) One Floor Number of Stairs To Enter/Railing? 4 steps with narrow bilateral rails to enter. Home Environment Standard Height Toilet,Tub/ Shower Home Equipment Front Wheel Walker,Straight Cane,Hand Held Shower Additional Social History Comment Pt's daughter to sta with her until next Wednesday. Pt's present for part of OT eval. M1 PT/OT-IP Prior Functional Status Start: 08/21/21 13:28 Freq: NEEDED Status: Active Protocol: Document 08/21/21 10:25 [facility] (Rec: 08/21/21 13:39 [facility] [id number]) Medical Review Prior Functional Status Medical History Reviewed Yes Communication able to make needs known Mobility and Gait pt stated that she is indpeendent with all mobilities and ambualtion without AD Social History Household Members none Living Arrangements House Number of Floors (Floors) One Floor Number of Stairs To Enter/Railing? 4 steps B rails to enter Home Environment Standard Height Toilet,Tub/ Shower Home Equipment Front Wheel Walker,Hand Held Shower Additional Social History Comment pt's daughter will stay with pt to assist her for ~ 1 1/2 weeks M2 PT-IP Current Condition Start: 08/21/21 13:28 Freq: NEEDED Status: Active Protocol: Document 08/21/21 10:25 [facility] (Rec: 08/21/21 13:39 [facility] [id number]) Physical Therapy Current Condition Current Condition Evaluation Date 08/21/21 Treatment Diagnosis s/p L4-5, L5S1 TLIF; difficulty in walking Onset Date 08/20/21 M3 PT-IP Subjective Start: 08/21/21 13:28 Freq: NEEDED Status: Active Protocol: Document 08/21/21 10:25 [facility] (Rec: 08/21/21 13:39 [facility] [id number]) Subjective Physical Therapy Visit Type Type Initial Evaluation Visit Start Time 10:25 Visit Stop Time 11:00 Total Visit Minutes 35 Number of PRINCIPAL TECHNICAL ARCHITECT Visits 0 Physical Therapy Visit Comments Patient Comments agreeable to do PT Therapy Pain Assessment Pain When Pain Assessed At Rest Pain Present Pain Present Pain Reported Location Low Back Intensity 5 Scale Used Numeric (0 - 10) Pain Management Techniques Apply Cold,Distraction, Modification of Treatment,Re- positioning,Timing of Activity with Medications M4 PT-IP Mobility and Gait Start: 08/21/21 13:28 Freq: NEEDED Status: Active Protocol: Document 08/21/21 10:25 [facility] (Rec: 08/21/21 13:39 [facility] [id number]) PT-Bed Mobility Assessment Rolling Type of Rolling Log Rolling Level of Assist Standby Assistance Supine to Sit Supine to Sit Standby Assistance Sit to Supine Sit to Supine Standby Assistance Scooting Scooting to Edge of Bed Standby Assistance PT-Transfer Assessment Sit to and From Stand Sit to and from Stand Standby Assistance,1 Person Assistance,Use of Upper Extremities Equipment Transfer Assistive Device Gait Belt,Front Wheeled Walker Orthotic/Prosthetic Devices or Brace: No Transfers Transfer Destination Bed,Chair Transfer Technique ambulated Transfer Ability Level of Assist Standby Assistance,1 Person Assistance,Use of Upper Extremities Comments Mobility Comments pt sitting on chair. pt's son in room. pt able to recall her back precautions. completed sit to stand SBA and ambulated in room ~ 15 ft to the bed SBA using FWW. pt with sligh increase of R knee flexion with slight buckling and cued for quads contraction . pt able to follow. pt also tends to cross RLE over midline and cued for increasing YARI for safety. completed supine to sit SBA log roll. completed sit to stand from the EOB CGA with difficulty. pt sat back down. educated on sit<>stand techniques and pt repeated x 3 SBA with initial cues and able to complete without afterwards. pt ambulated in the hallway using FWW SBA ~ 125 ft. educated on stair climbing and completed up/down steps using B rails SBA to CGA. son present and knows how to assist pt. pt ambulated back to her room using FWW SBA. sat on chair and positioned. pt asked regarding tub transfer bench transfer and educated on how to complete. pt and son without further concerns. left pt in chair with call light next to pt. informed nurse regarding pt's mobility. Gait Assessment Gait Gait Assistance Required: Standby Assistance Distance (Feet) 125 Able to Maintain Weight Bearing Status Yes During Gait Assistive Devices Assistive Device Gait Belt,Front Wheeled Walker Orthotic/Prosthetic Devices or Brace: No Gait Deviations General Gait Pattern Decreased Stride Length, Decreased Feet Clearance Factors Limiting Gait Function Factors Limiting Gait Function Decreased Activity Tolerance, Decreased Strength,Limited Range of Motion,Pain,Poor Balance,Poor Safety Awareness Stair Climbing Assessment Evaluation Level of Assist On Stairs Standby Assistance,Contact Guard Assistance Devices Stair Climbing Assistive Devices Left Railing,Right Railing Technique/Endurance Stair Climbing Direction Ascend and Descend Stair Climbing Technique Step to Step Number of Steps Climbed 3 Query Text: Stair Climbing Set # Repetitions (reps) 1 PT-Balance Assessment Sitting Balance and Reactions Static Sitting Balance Ability Good Dynamic Sitting Balance Ability Good Standing Balance and Reactions Static Standing Balance Ability Fair Dynamic Standing Balance Ability Fair Device Used FWW M5 PT-IP Objective Assessments Start: 08/21/21 13:28 Freq: NEEDED Status: Active Protocol: Document 08/21/21 10:25 [facility] (Rec: 08/21/21 13:39 [facility] [id number]) Orientation Orientation/Cognition Level of Alertness Alert Orientation Name,Age,Birthday,Month,Date, Year,Day of Week,Place, Situation Language Function Ability No Deficits Noted Safety Awareness Understands Safety Issues Memory Description No Deficits Noted Gross Range of Motion Lower Extremity ROM Assessment Within Functional Limits Strength Lower Extremity Strength Assessment Right Impaired Knee 4-/5 Coordination Assessment Gross Coordination Gross Coordination WNL Sensation Assessment Sensation Gross Sensation WNL Muscle Tone Muscle Tone WNL Yes M6 PT-IP Treatment Start: 08/21/21 13:28 Freq: NEEDED Status: Active Protocol: Document 08/21/21 10:25 [facility] (Rec: 08/21/21 13:39 [facility] [id number]) Physical Therapy Treatment Education Education Provided Precautions,Weight Bearing Status,Safety M7 PT-IP Assessment and Plan Start: 08/21/21 13:28 Freq: NEEDED Status: Active Protocol: Document 08/21/21 10:25 [facility] (Rec: 08/21/21 13:39 [facility] [id number]) PT Summary Assessment and Plan Potential Rehabilitation Potential Good Status of Condition at Evaluation Stable Summary Impairments Pain,ROM,Strength,Balance, Coordination,Sensation,Tone, Cognition,Bed Mobility, Transfers,Gait,Activity Tolerance Assessment Summary pt requirng SBA to CGA with mobility and will have her daughter to assist her at home . pt plans to go home today and may go home when medically stable. Goals Bed Mobility Goal Independent Transfer Goal Independent,Front Wheeled Walker Gait Goal Independent,Front Wheel Walker Gait Distance 250 Other Goals upd/won 4 steps R rails mod I Days to Meet Goals 3 Frequency of Treatment Frequency Of Treatment Twice a Day Treatment Plan Physical Therapy Treatment Plan Bed Mobility Training,Transfer Training,Gait Training, Therapeutic Exercise,Balance Retraining,Post Op Education, Discharge Planning,Hot or Cold Pack,Neuromuscular Re-ed, Coordination Retraining,Manual Therapy Precautions Lumbar Precautions Log Roll,No Twisting,Limit Bending,Lifting Restriction of 10 lbs,Gait Belt above Incisional Area Recommendations To Nursing Amount of Assist Needed 1 Person Assist Discharge Recommendations PT Discharge Recommendations Home with Assistance Transportation Needs at Discharge Private Vehicle
--- NOTE | 2021-08-21 11:45 | PC.NURSE ---
Pt A/O worked w/ PT & OT, received clearance for D/C [place] cath D/C w/ 1200 clear yellow urine. Voided large amount SL discontinued intact. Home instructions given w/understanding RX sent to [facility] in [place] Pt escorted via W/C by staff to waiting vehicle D/C in stable post op course.
--- NOTE | 2021-08-21 12:18 | CM.DPNOTE ---
Discharge Planning Note: Patient medically cleared for discharge post PT evaluation. Patient transported home via POV with patient's son. No discharge planning needs identified. Nguyễn BACA
== END 2021-08-21 11:30 | disposition home or self-care (01) ==
LOC: OR 15:41 → AC 15:41
PROVIDERS: Admitting Provider Orthopaedic Surgery Orthopaedic Surgery of the Spine; Family Provider Registered Nurse Women's Health Care, Ambulatory; PCP Naturopath; Referring Provider Physical Medicine & Rehabilitation; Visit Provider Orthopaedic Surgery Orthopaedic Surgery of the Spine
PROC: (CPT 22633; principal; 2021-08-20 07:45)
DX: M48.061 Spinal stenosis, lumbar region without neurogenic claudication (principal); M54.16 Radiculopathy, lumbar region; J45.909 Unspecified asthma, uncomplicated; M41.56 Other secondary scoliosis, lumbar region; E03.9 Hypothyroidism, unspecified; F41.9 Anxiety disorder, unspecified
CPT/HCPCS: 22633; 22634; 22842; 22853 ×2; 20939; 63052; 63053; 36415; 72100; 76000; 82962; 85014; 85018; 97161; 97165; 97530; 97535; G0378; C1713; C1831; C9290; J0171; J0330; J0690; J1100; J1170; J2060; J2250; J2405; J2704; J3010

== ENCOUNTER → 2021-12-04 11:50 | Outpatient (CLI) | payer OTHER, SELFPAY ==
[2021-08-20 12:57] VITALS: BMI 25.7
--- NOTE | 2021-12-04 11:52 | DI.MG.S_ITS ---
BILATERAL DIGITAL DIAGNOSTIC MAMMOGRAM 3D/2D: 12/04/2021 CLINICAL: Lump in the Left breast. Comparison is made to exams dated: 01/06/2021 mammogram, 01/12/2019 mammogram, and 08/24/2016 mammogram - [facility]. There are scattered fibroglandular elements in both breasts. No significant masses, calcifications, or other findings are seen in either breast. IMPRESSION: INCOMPLETE: NEEDS ADDITIONAL IMAGING EVALUATION No suspicious finding. An ultrasound of the lower inner and lower outer quadrant left breast will be performed, which is reportedly the region of the palpable concern. Based on the Tyrer Cuzick model (a risk assessment model) the patient's lifetime risk is 11.1% and her 10 year risk is 4.5%. According to the ACR, ACS, and NCCN guidelines, an annual breast MRI exam along with mammogram is recommended if the patient's lifetime risk is 20% or greater. This exam was interpreted at Station ID: [id number]. NOTE: For mammograms, a report in lay terms will be sent to the patient. Approximately 15% of breast malignancies will not be visualized mammographically. In the management of a palpable breast mass, a negative mammogram must not discourage biopsy of a clinically suspicious lesion. Electronically Signed By: Noe Espinosa M.D. jr/:12/04/2021 14:26:53 ACR BI-RADS Category 0: Incomplete 3340F
--- NOTE | 2021-12-04 11:52 | DI.US.S_ITS ---
LIMITED ULTRASOUND OF LEFT BREAST AND AXILLA: 12/04/2021 CLINICAL: Patient here for ultrasound to evaluate a palpable abnormality felt by the doctor in the left breast. No prior exams were available for comparison. Color flow and real-time ultrasound of the left breast 3-9 o'clock, and axilla regions were performed. De Los Santos scale images of the real-time examination were reviewed. No significant abnormalities were seen sonographically in the left breast. IMPRESSION: NEGATIVE There is no sonographic evidence of malignancy. A 1 year screening mammogram is recommended. This exam was interpreted at Station ID: [id number]. Electronically Signed By: Noe Espinosa M.D., jr/taryn:12/04/2021 14:27:13 letter sent: Normal Exam Ultrasound BI-RADS: 1 Negative
== END ==
PROVIDERS: Family Provider Registered Nurse Women's Health Care, Ambulatory; PCP Naturopath; Referring Provider Naturopath; Visit Provider Naturopath
DX: N63.20 Unspecified lump in the left breast, unspecified quadrant (principal); R92.2 Inconclusive mammogram
CPT/HCPCS: 76642; 77066; G0279

== ENCOUNTER → 2021-12-23 09:34 | Outpatient (CLI) | payer OTHER, SELFPAY ==
[2021-08-20 12:57] VITALS: BMI 25.7
--- NOTE | 2021-12-23 | DI.CT.S_ITS ---
PROCEDURE: CT SINUS SCREEN WO CON INDICATIONS: Chronic pansinusitis TECHNIQUE: Noncontrast 3.0 mm axial images acquired from the frontal sinuses to the mid-sella, with coronal and sagittal reformats. For radiation dose reduction, the following was used: automated exposure control, adjustment of mA and/or kV according to patient size. COMPARISON: None. FINDINGS: Image quality: Excellent. Minimal mucosal thickening noted in the floor of the left maxillary sinus. No air-fluid levels identified. The ostiomeatal units are patent bilaterally. Paradoxical right middle turbinate. No pee bullosa. Nasal septum is deviated to the left. No osseous thickening, osseous remodeling or osseous erosive changes. IMPRESSION: Minimal left maxillary sinus mucosal thickening. No paranasal sinus air-fluid levels. Dictated by: Ambar Brewer MD, PhD on 12/23/2021 at 14:00 Approved by: Ambar Brewer MD, PhD on 12/23/2021 at 14:03
== END ==
PROVIDERS: Family Provider Registered Nurse Women's Health Care, Ambulatory; PCP Naturopath; Referring Provider Otolaryngology; Visit Provider Otolaryngology
DX: J32.4 Chronic pansinusitis (principal); R51.9 Headache, unspecified; J01.41 Acute recurrent pansinusitis
CPT/HCPCS: 70486

== ENCOUNTER 2022-04-13 09:21 | Emergency (ER) | payer OTHER, SELFPAY ==
[2021-08-20 12:57] VITALS: BMI 25.7
[2022-04-13] VITALS (7 sets, daily range): BP systolic 111–150; BP diastolic 56–82; PULSE 67–71; RESP 17–23; TEMP 36.8–36.9; O2SAT 94–97; BMI 23.3
--- NOTE | 2022-04-13 10:00 | DI.RAD.S_ITS ---
PROCEDURE: XR CHEST 2V INDICATIONS: URI, h/o asthma, sob, chills, cough TECHNIQUE: 2 views of the chest were acquired. COMPARISON: [facility], CR, XR CHEST 2V, 07/10/2021, 12:41. FINDINGS: Surgical changes and devices: None. Lungs and pleura: Subtle bilateral predominantly bibasilar interstitial infiltrates, left greater than right. No pleural effusions or pneumothorax. Mediastinum: Mediastinal contours are normal. Heart size is normal. Bones and chest wall: No suspicious bony abnormalities. Soft tissues appear unremarkable. IMPRESSION: Subtle bilateral interstitial infiltrates, left greater than right. Consider viral pneumonia. Comment: Progress films are recommended until clear. Dictated by: Boris Pereira M.D. on 04/13/2022 at 10:51 Approved by: Boris Pereira M.D. on 04/13/2022 at 10:52
[2022-04-13] MEDS: BENZONATATE 100 MG CAPSULE PO (10:09)
[2022-04-13] MEDS: predniSONE 20 MG TABLET 60 MG PO (10:09)
[2022-04-13 14:07] LABS: RBC Urine None Seen (0-5/HPF); WBC Urine 1-5/HPF (0-5/HPF)
[2022-04-13 14:09] LABS: Bacteria Urine Many (>30); Mucus Urine 1+ (Negative); Squamous Epithelial Cell Urine 1-5 /HPF (0-5/HPF)
[2022-04-13 14:10] LABS: Culture Indicated Urine Cult Not Indicated
[2022-04-13 15:23] LABS: Add Manual Diff / Slide Review NO; Basophils Absolute Auto 0 /uL (0-100); Eosinophils Absolute Auto 0 /uL (0-450); Hematocrit 37.9 % (36-46); Hemoglobin 13.4 g/dL (12.0-16.0); Lymphocytes Absolute Auto 800 /uL (1100-4500); Lymphocytes Percent Auto 7.3 % (25-40); Mean Corpuscular HGB Conc 35.3 % (30-36); Mean Corpuscular Hemoglobin 33.1 PG (26-34); Mean Corpuscular Volume 93.7 fL (80-100); Monocytes Absolute Auto 200 /uL (0-900); Monocytes Percent Auto 1.8 % (3-14); Neutrophils Absolute Auto 9800 /uL (1500-7000); Neutrophils Percent Auto 90.9 % (50-75); Platelet Count 185 X10^3/uL (150-400); Red Blood Cell Count 4.04 X10^6/uL (4.0-5.2); White Blood Cell Count 10.8 X10^3/uL (4.5-11.0)
--- NOTE | 2022-04-13 15:56 | ED.URI ---
HPI - URI/Sore Throat General Chief Complaint: Upper Respiratory Symptoms Stated Complaint: flu extended, SOB, asthma t-6 Time Seen by Provider: 04/13/22 15:50 Source: patient Mode of arrival: Ambulatory Limitations: no limitations History of Present Illness HPI Narrative: This is a 62-year-old female with known asthma, hypothyroidism, migraines with complaint of cough with productive sputum that was dark and is now kind of creamy yellow since Wednesday the . Patient has not had fevers she is post-tussive emesis. She has been using her inhaler which is sometimes helpful but also makes her cough a lot. She denies chest pain or pressure. She denies swelling in her extremities. She started with constipation and then followed with loose stools. No black or bloody stools. She is not passed out. Patient is a former smoker, occasional alcohol, no illicit. Related Data Home Medications Medication Instructions Recorded Confirmed albuterol sulfate 90 mcg/actuation 2 puff inhalation Q4-6H PRN 08/18/21 08/20/21 aerosol inhaler Shortness Of Breath fluticasone 250 mcg-salmeterol 50 1 inh inhalation BID 08/18/21 08/20/21 mcg/dose blistr powdr for inhalation (Advair Diskus) fluticasone propionate 44 1 puff inhalation BID PRN 08/18/21 08/20/21 mcg/actuation HFA aerosol inhaler Shortness Of Breath (Flovent HFA) fluticasone propionate 50 1 spray intranasal DAILY 08/18/21 08/18/21 mcg/actuation nasal spray,suspension gabapentin 300 mg capsule 300 mg PO TID 08/18/21 08/20/21 levothyroxine 75 mcg tablet 75 mcg PO DAILY 08/18/21 08/20/21 loratadine 10 mg tablet (Claritin) 10 mg PO DAILY 08/18/21 08/20/21 montelukast 10 mg tablet 10 mg PO QAM 08/18/21 08/20/21 (Singulair) naltrexone 50 mg tablet 4.5 mg PO BEDTIME Inflammatory 08/18/21 08/20/21 respone, breathing rizatriptan 10 mg tablet 10 mg PO DAILY PRN Migraine 08/18/21 08/20/21 Headache verapamil 120 mg tablet 120 mg PO DAILY PRN Migraines 08/18/21 08/20/21 magnesium 200 mg tablet 400 mg PO DAILY 08/20/21 08/20/21 turmeric 400 mg capsule 1,000 mg PO BID 08/20/21 08/20/21 Previous Rx's Medication Instructions Recorded acetaminophen 325 mg tablet 650 mg PO Q6HR PRN Pain, Mild 08/21/21 (1-3) #60 tabs docusate sodium 100 mg capsule 100 mg PO BID #20 caps 08/21/21 hydroxyzine pamoate 25 mg capsule 25 mg PO Q4HR PRN Nausea And 08/21/21 Vomiting #30 caps oxycodone 5 mg tablet 10 mg PO Q3HR PRN Pain, Severe 08/21/21 (7-10) #60 tabs azithromycin 250 mg tablet See Rx Instructions PO .COMPLEX #6 04/13/22 tabs azithromycin 250 mg tablet See Rx Instructions PO .COMPLEX #6 04/13/22 tabs benzonatate 100 mg capsule 100 mg PO Q6H PRN cough #10 caps 04/13/22 benzonatate 100 mg capsule 100 mg PO QID PRN cough #10 caps 04/13/22 prednisone 20 mg tablet 40 mg PO DAILY 5 days #10 tabs 04/13/22 prednisone 50 mg tablet 50 mg PO DAILY #4 tabs 04/13/22 Allergies Allergy/AdvReac Type Severity Reaction Status Date / Time alendronate sodium Allergy Severe Throat Verified 04/13/22 10:00 swelling, loss of voice Sulfa (Sulfonamide Allergy Severe Hives, Verified 04/13/22 10:00 Antibiotics) throat closing, swelling Review of Systems Review of Systems ROS Unobtainable: All systems reviewed & are unremarkable except as noted in HPI and below Patient History Medical History Anxiety Asthma Chronic fatigue syndrome Constipation History of migraine History of pneumonia Hypothyroidism Kidney stone PTSD (post-traumatic stress disorder) (~04/2021) Sciatica Sinus drainage Surgical History History of bilateral tubal ligation History of bunionectomy of both great toes History of carpal tunnel release of both wrists History of dilatation and curettage Hx of tonsillectomy S/P epidural steroid injection Social History household members: none Smoking Status: Former smoker alcohol intake: former Smoking Status: Former smoker alcohol intake frequency: holidays/special occasions only Substance Use Type: does not use Exam Narrative Exam Narrative: GEN: well nourished, well appearing female, alert and oriented x 3, patient appears to be in mild distress. HEENT: Atraumatic, pupils are equal round reactive to light, extraocular movements are intact, nares are clear HEART: Regular rate and rhythm without murmur, clicks, rubs. LUNGS:Lungs clear to auscultation, no wheezes, rales, crackles, chest moves symmetrically, patient has tachypnea patient has very Dr. Hacking cough that is persistent in the room. ABD:bowel sounds normal, soft, non-tender, no guarding, rebound, rigidity, no masses noted, no hepatosplenomegaly :No CVA tenderness MSCL: Non-tender, no muscle atrophy, muscles strength 5/5 upper and lower extremities, full range of motion, normal gait NEURO:CN 2-12 intact, sensation normal SKIN: No Rash, erythema or other skin changes. Initial Vital Signs Initial Vital Signs: Vital Signs Temperature 98.4 F 04/13/22 09:55 Pulse Rate 70 04/13/22 09:55 Respiratory Rate 17 04/13/22 09:55 Blood Pressure 150/82 H 04/13/22 09:55 Pulse Oximetry 97 04/13/22 09:55 Oxygen Delivery Method 04/13/22 09:55 Course Orders Ordered: ED Orders 04/13/22 12:49 Urine Microscopic Stat 04/13/22 14:50 BNP [NT-proBNP (BNP-Adult 18+)] Stat Complete Blood Count AUTO DIFF Stat Comprehensive Metabolic Panel Stat Covid-19 + FLU A/B + RSV - PCR Stat Troponin & CK Cardiac Panel Stat 04/13/22 15:22 EKG-12 Lead Stat Discontinued Medications Benzonatate (Benzonatate 100 Mg Capsule) 100 mg PO NOW ONE Stop: 04/13/22 10:07 Last Admin: 04/13/22 10:09 Dose: 100 mg Documented By: CHANTEL Prednisone (Prednisone 20 Mg Tablet) 60 mg PO NOW ONE Stop: 04/13/22 10:07 Last Admin: 04/13/22 10:09 Dose: 60 mg Documented By: CHANTEL Vital Signs Vital signs: Vital Signs - 8 hr 04/13/22 14:54 04/13/22 14:46 04/13/22 14:49 Temperature 98.3 F Pulse Rate 71 Respiratory Rate 19 Blood Pressure 125/62 Pulse Oximetry 96 Oxygen Delivery Method Room Air 04/13/22 14:49 04/13/22 15:00 04/13/22 15:00 Temperature Pulse Rate 67 67 Respiratory Rate 23 20 Blood Pressure 111/56 L Pulse Oximetry 95 94 Oxygen Delivery Method Room Air Room Air 04/13/22 15:30 04/13/22 15:30 04/13/22 16:00 Temperature Pulse Rate 70 Respiratory Rate Blood Pressure 119/63 118/60 Pulse Oximetry Oxygen Delivery Method 04/13/22 16:00 Temperature Pulse Rate 68 Respiratory Rate 20 Blood Pressure Pulse Oximetry 94 Oxygen Delivery Method MDM - URI/Sore Throat Lab Data Result diagrams: 04/13/22 14:50 04/13/22 14:50 Labs: Lab Results 04/13/22 04/13/22 04/13/22 Range/Units 12:49 14:50 14:50 WBC 10.8 (4.5-11.0) X10^3/uL RBC 4.04 (4.0-5.2) X10^6/uL Hgb 13.4 (12.0-16.0) g/dL Hct 37.9 (36-46) % MCV 93.7 (80-100) fL MCH 33.1 (26-34) PG MCHC 35.3 (30-36) % RDW 13.0 (11.6-14.8) % Plt Count 185 (150-400) X10^3/uL Neut % (Auto) 90.9 H (50-75) % Lymph % (Auto) 7.3 L (25-40) % [place] % (Auto) 1.8 L (3-14) % Eos % (Auto) 0.0 L (2-4) % Baso % (Auto) 0.0 (0-2) % Neut # (Auto) 9800 H (3411-7338) /uL Lymph # (Auto) 800 L (4246-3043) /uL [place] # (Auto) 200 (0-900) /uL Eos # (Auto) 0 (0-450) /uL Baso # (Auto) 0 (0-100) /uL Sodium (137-145) mmol/L Potassium (3.4-5.1) mmol/L Chloride (98-107) mmol/L Carbon Dioxide (22-32) mmol/L BUN (7-17) mg/dL Creatinine (0.52-1.04) mg/dL Estimated GFR (>60) mL/min BUN/Creatinine Ratio (6-22) Glucose (80-110) mg/dL Calcium (8.4-10.2) mg/dL Total Bilirubin (0.2-1.3) mg/dL AST (14-36) IU/L ALT (<35) IU/L Alkaline Phosphatase (38-126) U/L Total Creatine Kinase (30-135) U/L CK-MB (CK-2) CK-MB (CK-2) Rel Index Troponin I (0.01-0.034) ng/mL NT-Pro-B Natriuret Pep (<125) pg/mL Total Protein (6.3-8.2) g/dL Albumin (3.5-5.0) g/dL Globulin (1.7-4.1) g/dL Albumin/Globulin Ratio (1.0-2.8) Urine RBC None seen (0-5/HPF) Urine WBC 1-5/hpf (0-5/HPF) Ur Squamous Epith Cells 1-5 /hpf (0-5/HPF) Urine Bacteria Many (>30) H (None) Urine Mucus 1+ H (Negative) Ur Culture Indicated? Cult not indicated SARS-CoV-2 (PCR) Negative (Negative) Influenza A (RT-PCR) Flu a positive H (NEGATIVE) Influenza B (RT-PCR) Flu b negative (NEGATIVE) RSV (PCR) Negative (Negative) 04/13/22 Range/Units 14:50 WBC (4.5-11.0) X10^3/uL RBC (4.0-5.2) X10^6/uL Hgb (12.0-16.0) g/dL Hct (36-46) % MCV (80-100) fL MCH (26-34) PG MCHC (30-36) % RDW (11.6-14.8) % Plt Count (150-400) X10^3/uL Neut % (Auto) (50-75) % Lymph % (Auto) (25-40) % [place] % (Auto) (3-14) % Eos % (Auto) (2-4) % Baso % (Auto) (0-2) % Neut # (Auto) (3803-4999) /uL Lymph # (Auto) (1354-1690) /uL [place] # (Auto) (0-900) /uL Eos # (Auto) (0-450) /uL Baso # (Auto) (0-100) /uL Sodium 137 (137-145) mmol/L Potassium 3.5 (3.4-5.1) mmol/L Chloride 100 (98-107) mmol/L Carbon Dioxide 24 (22-32) mmol/L BUN 7 (7-17) mg/dL Creatinine 0.50 L (0.52-1.04) mg/dL Estimated GFR > 60 (>60) mL/min BUN/Creatinine Ratio 14.0 (6-22) Glucose 139 H (80-110) mg/dL Calcium 9.0 (8.4-10.2) mg/dL Total Bilirubin 0.8 (0.2-1.3) mg/dL AST 69 H (14-36) IU/L ALT 71 H (<35) IU/L Alkaline Phosphatase 110 (38-126) U/L Total Creatine Kinase 52 (30-135) U/L CK-MB (CK-2) TNP CK-MB (CK-2) Rel Index TNP Troponin I < 0.012 (0.01-0.034) ng/mL NT-Pro-B Natriuret Pep 196 H (<125) pg/mL Total Protein 7.7 (6.3-8.2) g/dL Albumin 4.0 (3.5-5.0) g/dL Globulin 3.7 (1.7-4.1) g/dL Albumin/Globulin Ratio 1.1 (1.0-2.8) Urine RBC (0-5/HPF) Urine WBC (0-5/HPF) Ur Squamous Epith Cells (0-5/HPF) Urine Bacteria (None) Urine Mucus (Negative) Ur Culture Indicated? SARS-CoV-2 (PCR) (Negative) Influenza A (RT-PCR) (NEGATIVE) Influenza B (RT-PCR) (NEGATIVE) RSV (PCR) (Negative) Urine Dip Bedside Urine Glucose Negative Bedside Urine Bilirubin - Negative Bedside Urine Ketone + 15 Urine Specific Nelson 1.010 Bedside Urine Occult Blood - Negative Bedside Urine pH 6.0 Bedside Urine Protein +/- 15 Bedside Urine Urobilinogen +/- 1mg Bedside Urine Nitrite - Negative Bedside Urine Leukocytes - Negative Esterase Imaging Data Chest x-ray: Radiologist's Impression: John Kunz??68??M??08/19/1953 ? Allergy/Adv: levofloxacin, clindamycin, spironolactone, memantine, [INGREDIENT: NKDA - NO KNOWN DRUG ALLERGIES] (More??) Close Chest X-Ray (Signed) Linn Brand - 04/13/22 Wrist X-Ray (Signed) Ambar Brewer - 04/07/22 Hip X-Ray (Signed) Andrew Barksdale - 10/01/20 Hip X-Ray (Cancelled) 10/01/20 Echocardiogram Ultrasound (Signed) Kenneth Loco - 06/01/19 Renal Ultrasound (Signed) Linn Brand - 02/15/19 Launch?[place] [id number] XRay Report Signed Patient: John Kunz MR#: [id number] : 08/19/1953 Acct:[id number] Age/Sex: 68 / M Date of Service: 04/13/22 Loc: Accession Number: [id number] ?? Procedure: XR chest 1V Ordering Provider: Katie Milner D.O. PROCEDURE:? XR CHEST 1V ? INDICATIONS:? chest pain ? TECHNIQUE:? One view of the chest was acquired.? ? COMPARISON:? [facility], CHEST 1 VIEW, 04/11/2007, 9:22. ? FINDINGS:? ? Surgical changes and devices:? None.? ? Lungs and pleura:? Lungs are clear.? No pleural effusions or pneumothorax.? ? Mediastinum:? Mediastinal contours appear normal.? Heart size is normal.? ? Bones and chest wall:? No suspicious bony lesions.? Overlying soft tissues appear unremarkable.? ? IMPRESSION:? No acute pulmonary process. ? ? Dictated by: Linn Brand M.D. on 04/13/2022 at 14:35 ? ? Approved by: Linn Brand M.D. on 04/13/2022 at 14:35?? MDM Narrative Medical decision making narrative: This is a 62-year-old female with complaint of cough, productive sputum since Wednesday, patient is not having any hemoptysis no chest pain or pressure she has a history of asthma she feels much better after prednisone and Tessalon Perle here in the department. Chest x-ray shows possible viral versus bacterial infection. CBC does not show clear indication, chemistry panels are pending as well as respiratory swabs. Patient would prefer to discharge home rather than waiting for these, asked to call back by 8:00 p.m. if I have not called her with results. We will start her on antibiotics, oral steroid she is not actively wheezy but does have quite a bit of cough and Tessalon Perles which she found very helpful. Patient appears appropriate for discharge, does not appear septic vitals are appropriate she has not been hypoxic. Discharge Plan Departure Patient Disposition: Home Clinical Impression: Pneumonia, Asthma exacerbation Instructions: DI for Pneumonia -- Adult Activity Restrictions/Additional Instructions: Please follow-up for recheck your chest x-ray today does show pneumonia changes bilaterally would recommend repeat x-rays in the next several weeks to make sure your x-ray resolved. Your CMP and panel including influenza, COVID and RSV are pending if you have not heard from me by 8:00 p.m. please call to make sure that we have gotten these results back and that there are no changes to them. Take antibiotics until completely gone. Take steroids until completely gone You may use Tessalon Perles 1 every 8 hours as needed. Keep these away from the any small children. Prescription sent to [facility] in [place] Please return for worsening symptoms increasing shortness of breath, chest pain coughing up blood, new swelling in your extremities or fevers persisting more than several days Prescriptions: New azithromycin 250 mg tablet See Rx Instructions .ROUTE .COMPLEX Qty: 6 0RF Rx Instructions: For 250 mg dose pack: take 500 mg today (day 1), then 250 mg for 4 days (days 2-5) benzonatate 100 mg capsule 100 mg PO QID PRN (Reason: cough) Qty: 10 0RF prednisone 20 mg tablet 40 mg PO DAILY 5 Days Qty: 10 0RF azithromycin 250 mg tablet See Rx Instructions .ROUTE .COMPLEX Qty: 6 0RF Rx Instructions: For 250 mg dose pack: take 500 mg today (day 1), then 250 mg for 4 days (days 2-5) benzonatate 100 mg capsule 100 mg PO Q6H PRN (Reason: cough) Qty: 10 0RF prednisone 50 mg tablet 50 mg PO DAILY Qty: 4 0RF No Action fluticasone propion-salmeterol [Advair Diskus] 250-50 mcg/dose Blister With Device 1 inh INHALATION BID naltrexone 50 mg Tablet 4.5 mg PO BEDTIME Label Comments: Compounded by [facility] levothyroxine 75 mcg Tablet 75 mcg PO DAILY Flovent HFA 44 mcg/actuation Hfa Aerosol Inhaler 1 puff INHALATION BID PRN (Reason: Shortness Of Breath) Rx Instructions: administer with spacer gabapentin 300 mg Capsule 300 mg PO TID montelukast [Singulair] 10 mg Tablet 10 mg PO QAM albuterol sulfate 90 mcg/actuation Hfa Aerosol Inhaler 2 puff INHALATION Q4-6H PRN (Reason: Shortness Of Breath) rizatriptan 10 mg Tablet 10 mg PO DAILY PRN (Reason: Migraine Headache) Rx Instructions: take 1 tab at onset of headache; if no relief may repeat 1 tab after at least 2 hrs; max = 3 tabs/24 hr verapamil 120 mg Tablet 120 mg PO DAILY PRN (Reason: Migraines) fluticasone propionate 50 mcg/actuation Fowler,Suspension 1 spray INTRANASAL DAILY Rx Instructions: administer into each nostril loratadine [Claritin] 10 mg Tablet 10 mg PO DAILY magnesium 200 mg Tablet 400 mg PO DAILY turmeric 400 mg Capsule 1,000 mg PO BID acetaminophen 325 mg Tablet 650 mg PO Q6HR PRN (Reason: Pain, Mild (1-3)) Qty: 60 0RF docusate sodium 100 mg Capsule 100 mg PO BID Qty: 20 0RF oxycodone 5 mg Tablet 10 mg PO Q3HR PRN (Reason: Pain, Severe (7-10)) Qty: 60 0RF hydroxyzine pamoate 25 mg Capsule 25 mg PO Q4HR PRN (Reason: Nausea And Vomiting) Qty: 30 0RF Referrals: Mini London ND [Primary Care Provider] - Visit Report Forms: Patient Portal/API
[2022-04-13 16:23] LABS: Alanine Aminotransferase 71 IU/L (<35); Albumin Globulin Ratio 1.1 (1.0-2.8); Alkaline Phosphatase 110 U/L (38-126); Aspartate Aminotransferase 69 IU/L (14-36); Bilirubin Total 0.8 mg/dL (0.2-1.3); Blood Urea Nitrogen 7 mg/dL (7-17); Carbon Dioxide 24 mmol/L (22-32); Chloride 100 mmol/L (98-107); Creatine Kinase 52 U/L (30-135); Estimated Glomerular Filt Rate > 60 mL/min (>60); Globulin 3.7 g/dL (1.7-4.1); Glucose 139 mg/dL (80-110); HEMOLYSIS < 15 (0-50); Potassium 3.5 mmol/L (3.4-5.1); Sodium 137 mmol/L (137-145); Total Protein 7.7 g/dL (6.3-8.2)
[2022-04-13 16:35] LABS: NT-proBNP (BNP-Adult 18+) 196 pg/mL (<125); Troponin I < 0.012 ng/mL (0.01-0.034)
[2022-04-13 16:39] LABS: Influenza A - CEPHEID Flu A POSITIVE (NEGATIVE); Influenza B - CEPHEID Flu B NEGATIVE (NEGATIVE); Respiratory Syncytial Virus Negative (Negative)
[2022-04-13 16:53] LABS: COVID-19 CEPHEID 4-PLEX PCR Negative (Negative)
== END 2022-04-13 16:35 | disposition home or self-care (01) ==
PROVIDERS: Emergency Provider Emergency Medicine; Family Provider Registered Nurse Women's Health Care, Ambulatory; PCP Naturopath
DX: J18.9 Pneumonia, unspecified organism (principal); R07.9 Chest pain, unspecified; J45.901 Unspecified asthma with (acute) exacerbation; Z20.822 Contact with and (suspected) exposure to COVID-19
CPT/HCPCS: 0241U; 36415; 71046; 80053; 81003; 81015; 82550; 83880; 84484; 85025; 93005; 99284

== ENCOUNTER → 2022-04-28 09:12 | Outpatient (CLI) | payer OTHER, SELFPAY ==
[2021-08-20 12:57] VITALS: BMI 25.7
--- NOTE | 2022-04-28 | DI.RAD.S_ITS ---
PROCEDURE: XR CHEST 2V INDICATIONS: COUGH TECHNIQUE: 2 views of the chest were acquired. COMPARISON: [facility], CR, XR CHEST 2V, 04/13/2022, 11:34. FINDINGS: Surgical changes and devices: None. Lungs and pleura: Lungs are clear. No pleural effusions or pneumothorax. Mediastinum: Mediastinal contours are normal. Heart size is normal. Bones and chest wall: No suspicious bony abnormalities. Soft tissues appear unremarkable. IMPRESSION: No acute cardiopulmonary disease. Dictated by: Letitia Rodriguez M.D. on 04/28/2022 at 16:02 Approved by: Letitia Rodriguez M.D. on 04/28/2022 at 16:02
== END ==
PROVIDERS: Family Provider Registered Nurse Women's Health Care, Ambulatory; PCP Naturopath; Referring Provider Naturopath; Visit Provider Naturopath
DX: R05.3 Chronic cough (principal)
CPT/HCPCS: 71046

== ENCOUNTER → 2022-07-21 09:16 | Outpatient (CLI) | payer OTHER, SELFPAY ==
[2021-08-20 12:57] VITALS: BMI 25.7
--- NOTE | 2022-07-21 | DI.RAD.S_ITS ---
PROCEDURE: XR CHEST 2V INDICATIONS: COUGH TECHNIQUE: 2 views of the chest were acquired. COMPARISON: [facility], CR, XR CHEST 2V, 04/28/2022, 10:25. FINDINGS: Surgical changes and devices: None. Lungs and pleura: Subtle opacity in right lower lung field is seen. Left lung is clear. No pleural effusions or pneumothorax. Mediastinum: Mediastinal contours are normal. Heart size is normal. Bones and chest wall: No suspicious bony abnormalities. Soft tissues appear unremarkable. IMPRESSION: Finding may represent small infiltrate versus atelectasis at right lung base. Left lung is clear. No pleural effusion or pneumothorax. Dictated by: Sohan Glez M.D. on 07/21/2022 at 10:13 Approved by: Sohan Glez M.D. on 07/21/2022 at 10:13
== END ==
PROVIDERS: Family Provider Registered Nurse Women's Health Care, Ambulatory; PCP Naturopath; Referring Provider Naturopath; Visit Provider Naturopath
DX: R05.9 Cough, unspecified (principal)
CPT/HCPCS: 71046

== ENCOUNTER → 2023-03-24 14:29 | Outpatient (CLI) | payer OTHER, SELFPAY ==
[2021-08-20 12:57] VITALS: BMI 25.7
--- NOTE | 2023-03-24 14:30 | DI.MG.S_ITS ---
BILATERAL DIGITAL SCREENING MAMMOGRAM 3D/2D WITH CAD: 03/24/2023 CLINICAL: Routine screening. Family history of breast cancer. Comparison is made to exams dated: 12/04/2021 mammogram - [facility], 01/06/2021 mammogram, and 01/12/2019 mammogram - [facility]. There are scattered areas of fibroglandular density in both breasts (category b / 25%-50% glandular tissue). Current study was also evaluated with a Computer Aided Detection (CAD) system. No significant masses, calcifications, or other findings are seen in either breast. There has been no significant interval change. IMPRESSION: NEGATIVE There is no mammographic evidence of malignancy. A 1 year screening mammogram is recommended. Based on the Tyrer Cuzick model (a risk assessment model) the patient's lifetime risk is 10.5% and her 10 year risk is 4.6%. According to the ACR, ACS, and NCCN guidelines, an annual breast MRI exam along with mammogram is recommended if the patient's lifetime risk is 20% or greater. This exam was interpreted at Station ID: [id number]. NOTE: For mammograms, a report in lay terms will be sent to the patient. Approximately 15% of breast malignancies will not be visualized mammographically. In the management of a palpable breast mass, a negative mammogram must not discourage biopsy of a clinically suspicious lesion. Electronically Signed By: Atilio merino/taryn:03/25/2023 07:57:07 letter sent: Normal Exam ACR BI-RADS Category 1: Negative 3341F
--- NOTE | 2023-03-24 14:30 | DI.RAD.S_ITS ---
Bone Density Report Name: JUAN ANTONIO SALDANA Age: 63 Sex: Female Ethnicity: White Date of : 1960 Indication: postmenopausal; screening for osteoporosis; Referring Provider: ERWIN REDMOND Study: Bone densitometry was performed. Exam Date: March 24, 2023 Accession number: [id number] Bone Density: Region BMD T-score Z-score Classification AP Spine(L1, L2, L3) 0.949 -0.6 0.9 Normal Femoral Neck (Left) 0.657 -1.7 -0.4 Osteopenia Total Hip (Left) 0.803 -1.1 -0.1 Osteopenia Femoral Neck (Right) 0.647 -1.8 -0.4 Osteopenia Total Hip (Right) 0.771 -1.4 -0.3 Osteopenia Total Hip Mean 0.787 -1.3 -0.2 Osteopenia World Health Organization criteria for BMD impression classify patients as: Normal (T-score at or above -1.0), Osteopenia (T-score between -1.0 and -2.5), or Osteoporosis (T-score at or below -2.5). 10-year Fracture Risk(1): Major Osteoporotic Fracture 9.5% Hip Fracture 1.1% Reported Risk Factors: [place] (), Neck BMD=0.647, BMI=25.7 (1) FRAX(R) Version 3.08. Fracture probability calculated for an untreated patient. Fracture probability may be lower if the patient has received treatment. Impression: The patient has low bone mass, based on the Right Femoral Neck T-score. The patient has an estimated ten-year risk of hip fracture of 1.1% and an estimated ten-year risk of major fracture of 9.5%, based on the WHO FRAX algorithm. Discussion: BONE DENSITY IS LOW AT ONE OR MORE SKELETAL SITES. This patient's lowest T-score is low at one or more skeletal sites. It meets the World Health Organization's (WHO) criteria for low bone mass (T-score between -1.0 and -2.5). The patient's 10-year risk of fracture as calculated by FRAX is less than the threshold where pharmacological therapy is recommended by the National Osteoporosis Foundation (NOF). However, all treatment decisions require clinical judgment and consideration of individual patient factors, including patient preferences, comorbidities, previous drug use, risk factors not captured in the FRAX model (e.g., frailty, falls, vitamin D deficiency, increased bone turnover, interval significant decline in bone density) and possible under or overestimation of fracture risk by FRAX. The patient should follow a healthful lifestyle (good nutrition with adequate calcium and vitamin D, and appropriate weight-bearing exercise). Follow-Up: Consider repeating this study in 2 to 3 years to reassess this patient's status, or sooner if there is some new clinical indication. Reported by: KELLI WELCH M.D. on 03/24/2023 3:27:00 PM.
== END ==
PROVIDERS: Family Provider Registered Nurse Women's Health Care, Ambulatory; PCP Naturopath; Referring Provider Naturopath; Visit Provider Naturopath
DX: Z12.31 Encounter for screening mammogram for malignant neoplasm of breast (principal); Z80.3 Family history of malignant neoplasm of breast; Z79.52 Long term (current) use of systemic steroids; M85.851 Other specified disorders of bone density and structure, right thigh
CPT/HCPCS: 77063; 77067; 77080

== ENCOUNTER → 2024-04-14 11:17 | Outpatient (CLI) | payer OTHER, SELFPAY ==
[2021-08-20 12:57] VITALS: BMI 25.7
[2024-04-14 12:32] LABS: Add Manual Diff / Slide Review NO; Basophils Absolute Auto 0 /uL (0-100); Basophils Percent Auto 0.6 % (0-2); Eosinophils Absolute Auto 100 /uL (0-450); Eosinophils Percent Auto 0.9 % (2-4); Hematocrit 41.2 % (36-46); Lymphocytes Absolute Auto 2400 /uL (1100-4500); Lymphocytes Percent Auto 28.1 % (25-40); Mean Corpuscular HGB Conc 33.9 % (30-36); Mean Corpuscular Hemoglobin 32.6 PG (26-34); Monocytes Absolute Auto 600 /uL (0-900); Monocytes Percent Auto 7.4 % (3-14); Neutrophils Absolute Auto 5500 /uL (1500-7000); Platelet Count 235 X10^3/uL (150-400); Red Blood Cell Count 4.29 X10^6/uL (4.0-5.2); Red Cell Distribution Width 13.3 % (11.6-14.8); White Blood Cell Count 8.7 X10^3/uL (4.5-11.0)
[2024-04-16 19:07] LABS: Alder IgE <0.10 kU/L (Class 0); Alternaria alternata IgE <0.10 kU/L (Class 0); Aspergillus fumigatus IgE <0.10 kU/L (Class 0); Box Elder IgE <0.10 kU/L (Class 0); Cat Dander IgE <0.10 kU/L (Class 0); Cladosporium herbarum IgE <0.10 kU/L (Class 0); Cottonwood IgE <0.10 kU/L (Class 0); D farinae IgE <0.10 kU/L (Class 0); D pteronyssinus IgE <0.10 kU/L (Class 0); Dog Dander IgE <0.10 kU/L (Class 0); Elm Tree IgE <0.10 kU/L (Class 0); Immunoglobulin E 3 IU/mL (6-495); Mountain Cedar IgE <0.10 kU/L (Class 0); Mouse Urine Proteins IgE <0.10 kU/L (Class 0); Nettle IgE <0.10 kU/L (Class 0); Oak Tree IgE <0.10 kU/L (Class 0); Penicillium chrysogen IgE <0.10 kU/L (Class 0); Pigweed, Common IgE <0.10 kU/L (Class 0); Ragweed, Short 0.37 kU/L (Class I); Sheep Sorrel IgE <0.10 kU/L (Class 0); Silver Birch IgE <0.10 kU/L (Class 0); Timothy Grass IgE 0.52 kU/L (Class I); Walnut Allery IgE < 0.10 kU/L (Class 0); White ash IgE 0.11 kU/L (Class 0/I)
== END ==
PROVIDERS: Family Provider Registered Nurse Women's Health Care, Ambulatory; PCP Family Medicine; Referring Provider Student in an Organized Health Care Education/Training Program; Visit Provider Student in an Organized Health Care Education/Training Program
DX: J45.40 Moderate persistent asthma, uncomplicated (principal)
CPT/HCPCS: 36415; 82785; 85025; 86003

== ENCOUNTER → 2025-04-25 10:37 | Outpatient (CLI) | payer OTHER, SELFPAY ==
[2021-08-20 12:57] VITALS: BMI 25.7
[2025-04-25 11:15] LABS: Add Manual Diff / Slide Review NO; Hematocrit 40.6 % (36-46); Hemoglobin 14.0 g/dL (12.0-16.0); Lymphocytes Absolute Auto 2400 /uL (1100-4500); Mean Corpuscular HGB Conc 34.4 % (30-36); Mean Corpuscular Hemoglobin 32.3 PG (26-34); Mean Corpuscular Volume 93.9 fL (80-100); Platelet Count 232 X10^3/uL (150-400)
== END ==
PROVIDERS: Family Provider Family Medicine; PCP Family Medicine; Referring Provider Student in an Organized Health Care Education/Training Program; Visit Provider Student in an Organized Health Care Education/Training Program
DX: J45.909 Unspecified asthma, uncomplicated (principal)
CPT/HCPCS: 36415; 85025